=== PATIENT | female | born 1945 | race Caucasian/White ===

== ENCOUNTER 2019-12-07 16:26 | Emergency (ER) | payer MEDICARE, SELFPAY ==
[2019-12-07 16:36] VITALS: BP 159/87; PULSE 67; RESP 14; TEMP 36.6; O2SAT 97; BMI 29.9
--- NOTE | 2019-12-07 16:51 | W.ED.SKABFB ---
HPI - Skin/Abscess/Foreign Bdy General: Chief complaint: Skin/Abscess/Foreign Body Stated complaint: hook in hand Time Seen by Provider: 12/07/19 16:51 History of Present Illness: HPI narrative: Patient got a fishhook in back of her right hand. complaint: other ([place]) Onset (ago): minute(s) Tetanus up to date: no Severity: mild Review of Systems Narrative: [place] back of right hand Psych: Denies: anxiety Physical Exam Const: COMMON NORMALS: no acute distress, average body habitus and patient oriented x3 HENMT: COMMON NORMALS: normocephalic HEAD & SCALP: normal to inspection and normocephalic FACE & SINUS: normal facial exam Eye: COMMON NORMALS: conjunctivae normal GENERAL EYE: appearance normal, both eyes and all related structures CONJUNCTIVA: Yes conjunctivae normal Neck/C-Spine: COMMON NORMALS: no JVD Chest: COMMONS NORMALS: normal inspection of the chest Resp: COMMON NORMALS: normal respiratory effort and clear to auscultation bilaterally AUSCULTATION: clear to auscultation bilaterally Cardio: COMMON NORMALS: no JVD, regular rate and regular rhythm RATE: regular rate RHYTHM: regular rhythm GI: COMMON NORMALS: Normal to inspection, nondistended, normoactive bowel sounds present Extremity: COMMON NORMALS: normal to inspection and full ROM Neuro: COMMON NORMALS: patient oriented x3 Skin: NARRATIVE SKIN EXAM: Remove fishhook from back right hand use lidocaine without difficulty Course Vital Signs: Vital signs: Vital Signs Temperature 97.8 F 12/07/19 16:36 Pulse Rate 67 12/07/19 16:36 Respiratory Rate 14 12/07/19 16:36 Blood Pressure 159/87 12/07/19 16:36 Pulse Oximetry 97 12/07/19 16:36 Discharge Plan Discharge Condition: Good Coding Level of Care Code ED Hammer Shop Supervisor for Elias Lopez
[2019-12-07] MEDS: tetanus-dipt-pertussis 0.5 mL SDV IM (17:08)
== END 2019-12-07 17:16 | disposition home or self-care (01) ==
PROVIDERS: Emergency Provider Nurse Practitioner Family
DX: S61.441A Puncture wound with foreign body of right hand, initial encounter (principal); W26.8XXA Contact with other sharp object(s), not elsewhere classified, initial encounter; Z23 Encounter for immunization
CPT/HCPCS: 12345; 90471; 90715; 99281; 99282

== ENCOUNTER 2022-07-15 13:09 | Emergency (ER) | payer MEDICARE, SELFPAY ==
[2022-07-15 13:26] VITALS: TEMP 36.6; BMI 30.4
--- NOTE | 2022-07-15 13:36 | XR_ITS ---
WS: [id number] Right hand, 2 views, 07/15/2022 Clinical Data: dog bite Comparison: None. Findings: No fractures or dislocations are seen. The soft tissues are unremarkable. 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 No radiopaque foreign bodies are seen. XR/XR hand RT 2V 32095 Impression: 1. Negative for radiopaque foreign body. 2. 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
--- NOTE | 2022-07-15 15:40 | PC.NURSE ---
Called and spoke with [place] [employer] and reported dog bite
--- NOTE | 2022-07-15 16:02 | W.ED.ANIMALB ---
HPI - Animal Bite General: Chief Complaint: Animal Bite Stated Complaint: dog bite to hand Time Seen by Provider: 07/15/22 15:43 History of Present Illness: Patient reports that this afternoon she was bitten by a 6-month-old puppy. She reports that this puppy is hers is up-to-date on most of his vaccinations except for it has not yet had its rabies vaccine. She reports that the dog is a house dog and is never outside without her or her spouse with it. She has 0 concern for rabies infection. She reports that the dog is a bit aggressive and has been for a while now. She states that the dog wanted her sandwich and that is why she got bit. She reports her lowest tetanus was 12 to 13 years ago. Associated symptoms: Deny chills, fever(s), headache(s) or syncope Review of Systems Const: Denies: fever(s), chills or body aches Card: Denies: chest pain, palpitations, irregular heart rhythm, lightheadedness or syncope Resp: Denies: dyspnea, productive cough or non-productive cough Musc: Reports: extremity pain Skin/Breast: Reports: other (Dog bite right hand) Neuro: Denies: headache(s), numbness in extremities or weakness in extremities Physical Exam Const: COMMON NORMALS: no acute distress, patient oriented x3 and alert Resp: COMMON NORMALS: normal respiratory effort and No use of accessory muscles Extremity: NARRATIVE EXTREMITY EXAM: Right dorsal hand patient has several small superficial lacerations to her fingers. She has a linear 2-1/2 inch laceration between her second and third finger that is superficial. CSM within normal limits to the distal hand. Flexion extension intact. Two-point discrimination to the digits on the hand within normal limits Neuro: COMMON NORMALS: patient oriented x3 SENSORIUM/ORIENTATION: Yes alert Procedures Laceration right hand: Site: upper extremity Side (If applicable): right Size (cm): 6.35 Description: linear and clean Depth: simple, single layer Local Anesthetic: lidocaine 1% Amount of anesthesia used (mL): 3 Pre-repair: wound explored, irrigated extensively and deep structures intact Skin layer closed with: nylon Size (cm): 4-0 Number of sutures: 6 Technique: simple, interrupted (Loosely sutured) Course Vital Signs: Vital signs: Vital Signs Temperature 97.9 F 07/15/22 13:26 Pulse Rate 84 02/16/23 18:09 Respiratory Rate 16 07/15/22 18:09 Blood Pressure 132/74 07/15/22 18:09 Pulse Oximetry 97 07/15/22 18:09 [facility] - Animal Bite Medical Decision Making The patient is in for a dog bite. The dog was her own but has not been vaccinated for rabies yet it is only 6 months old. Very little risk of rabies as the dog is never outside without her or her . The dog is an indoor dog. Has not been acting out of the ordinary. Nursing staff did report the dog bite to the police department. The patient is advised that she will monitor the dog for at least 10 days for any signs out of the ordinary. The patient understands the risk of rabies and does not wish to start the rabies vaccination series at this time. Tetanus is updated today. Wound is cleaned and suture repair is completed loose suturing. Discussed, at length the risk of infection post dog bite especially with suture repair however given the area of the laceration suture repair is indicated. The patient agrees and wishes to proceed with suture repair and voiced understanding of risk and benefits. Patient is educated on possible benefits and side effects of medications provided today. She is allergic to penicillin therefore an alternative regimen using clindamycin and Levaquin is ordered for prophylaxis as the patient is an immunocompromised diabetic and has an increased risk of infection after her dog bite. Or signs and symptoms of infection. Follow-up with primary care provider. Return sooner as needed for new or worsening symptoms Lab Data Radiology Impressions Hand X-Ray 07/15/22 13:36 Impression: 1. Negative for radiopaque foreign body. 2. 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 Discharge Plan Discharge Patient Disposition: Home Clinical Impression: Dog bite Condition: Stable Prescriptions: New clindamycin HCl 300 mg capsule 300 mg PO Q6H 7 Days Qty: 28 0RF levofloxacin 500 mg tablet 500 mg PO DAILY 7 Days Qty: 7 0RF Discharge Orders: Discharge ED (Routine); Ordered 07/15/22 Ordered By: Evie Elena Referrals: Elsi Morris FNP [Primary Care Provider] - Discharge Diet: Usual diet Discharge Activity: Limit activity as instructed Patient Instructions: Animal Bite (ED) Activity Restrictions/Additional Instructions: Take antibiotics as directed. I recommend taking a probiotic while taking antibiotics to protect gut anaid. Monitor the dog closely over the next 10 days. Monitor your hand closely for any signs of infection. Keep the wound clean and dry. Follow-up in 7 days for removal of sutures. Return sooner as needed. Coding Level of Care Code ED Correctional Therapy Director for Elias Lopez
[2022-07-15] MEDS: tetanus-dipt-pertussis 0.5 mL SDV IM (16:56)
[2022-07-15 18:09] VITALS: BP 132/74; PULSE 84; RESP 16; O2SAT 97
== END 2022-07-15 18:10 | disposition home or self-care (01) ==
PROVIDERS: Emergency Provider Nurse Practitioner Family; PCP Nurse Practitioner Primary Care
DX: S61.451A Open bite of right hand, initial encounter (principal); W54.0XXA Bitten by dog, initial encounter; Z23 Encounter for immunization
CPT/HCPCS: 12002; 73120; 90471; 90715; 99283